=== PATIENT | male | born 1955 | race American Indian/Alaskan Native ===

== ENCOUNTER 2021-02-16 08:43 | Emergency (ER) | payer SELFPAY ==
[2021-02-16] MEDS ORDERED: ASPIRIN 325 MG TAB PO ONE (09:13)
--- NOTE | 2021-02-16 09:42 | XRay Report ---
XR chest routine 2V INDICATION / CLINICAL INFORMATION: chest pain COMPARISON: None available. FINDINGS: SUPPORT DEVICES: None. HEART / MEDIASTINUM: No significant abnormality. LUNGS / PLEURA: Lungs are clear. Costophrenic sulci are sharp. No pneumothorax. ADDITIONAL FINDINGS: No significant additional findings. IMPRESSION: 1. No acute findings. Signer Name: Arvin Robbins MD Signed: 02/16/2021 9:38 AM Workstation Name: [email or web address]
--- NOTE | 2021-02-16 10:37 | Emergency Department Report ---
ED Chest Pain HPI - General Chief Complaint: Chest Pain Stated Complaint: CHEST PAIN Time Seen by Provider: 02/16/21 10:27 Source: patient Mode of arrival: Stretcher Limitations: No Limitations - History of Present Illness Initial Comments: Patient is 65 years old male with history of hypertension. No history of coronary artery disease before. Patient presented to the ER complaining of chest pain, substernal with no radiation. Patient stated that pain started around 4:00 this morning. Patient stated that he feels like he is exerting himself a lot since he worked for [employer] and he has to do extra work sometimes. Patient denied any shortness of breath. He also denied any fever or chills. MD Complaint: chest pain -: This morning Onset: during rest Pain Location: substernal Pain Radiation: none Severity scale (0 -10): 5 Quality: tightness Consistency: intermittent - Related Data Allergies Allergy/AdvReac Type Severity Reaction Status Date / Time No Known Allergies Allergy Unverified 02/16/21 08:58 Heart Score - HEART Score History: Moderately suspicious EKG: Non-specific Age: 45-65 Risk factors: 1-2 risk factors Troponin: < normal limit HEART Score: 4 - EKG Read Time Time EKG Completed: 09:04 EKG Read Time: 09:08 - Critical Actions Critical Actions: 4-6 pts:12-16.6% risk of adverse cardiac event. Should be admitted ED Review of Systems ROS: Stated complaint: CHEST PAIN Other details as noted in HPI Comment: All other systems reviewed and negative Respiratory: denies: cough Cardiovascular: chest pain Gastrointestinal: denies: abdominal pain, nausea, vomiting Musculoskeletal: denies: back pain Neurological: denies: headache ED Past Medical Hx - Past Medical History Previous Medical History?: Yes Hx Hypertension: Yes ED Physical Exam - General Limitations: No Limitations General appearance: alert, in no apparent distress - Head Head exam: Present: atraumatic, normocephalic, normal inspection - Eye Eye exam: Present: normal appearance, PERRL - ENT ENT exam: Present: normal exam, normal orophraynx, mucous membranes moist - Neck Neck exam: Present: normal inspection, full ROM. Absent: tenderness, meningismus - Respiratory Respiratory exam: Present: normal lung sounds bilaterally - Cardiovascular Cardiovascular Exam: Present: regular rate, normal rhythm, normal heart sounds - GI/Abdominal GI/Abdominal exam: Present: soft, normal bowel sounds. Absent: distended, tenderness, guarding, rebound, rigid, organomegaly, mass, bruit, pulsatile mass, hernia - Extremities Exam Extremities exam: Present: normal inspection, full ROM, normal capillary refill. Absent: tenderness, pedal edema, joint swelling, calf tenderness - Back Exam Back exam: Present: normal inspection, full ROM. Absent: CVA tenderness (R), CVA tenderness (L) - Neurological Exam Neurological exam: Present: alert, oriented X3, CN II-XII intact - Psychiatric Psychiatric exam: Present: normal mood - Skin Skin exam: Present: warm, intact, normal color ED Course Vital Signs 02/16/21 02/16/21 02/16/21 08:58 11:01 11:15 Pulse Rate 85 66 63 Respiratory 16 14 13 Rate Blood Pressure 106/66 94/76 Blood Pressure 125/88 [Right] O2 Sat by Pulse 99 96 95 Oximetry 02/16/21 02/16/21 02/16/21 11:31 12:01 12:31 Pulse Rate 73 89 78 Respiratory 17 22 19 Rate Blood Pressure 94/76 126/92 92/63 Blood Pressure [Right] O2 Sat by Pulse 97 96 97 Oximetry 02/16/21 02/16/21 14:31 14:34 Pulse Rate 60 Respiratory 19 18 Rate Blood Pressure 118/83 Blood Pressure [Right] O2 Sat by Pulse 93 98 Oximetry - Consultations Consultation #1: 02/16/21 13:14 I discussed the patient with María, nurse practitioner with Dr. Delarosa, clothing consultant on-call. She stated that she is coming down to evaluate the pat ient for further recommendation. ED Medical Decision Making - Lab Data Result diagrams: 02/16/21 09:49 02/16/21 09:49 - EKG Data -: EKG Interpreted by Ga EKG shows normal: sinus rhythm Rate: normal - EKG Data Interpretation: no acute changes - Radiology Data Radiology results: report reviewed - Medical Decision Making Patient is 65 years old male with history of hypertension. No history of coronary artery disease before. Patient presented to the ER complaining of chest pain, substernal with no radiation. Patient stated that pain started around 4:00 this morning. Patient stated that he feels like he is exerting himself a lot since he worked for [employer] and he has to do extra work sometimes. Patient denied any shortness of breath. He also denied any fever or chills. EKG showed no ST elevation. Chest x-ray is unremarkable. Labs reviewed and is unremarkable including negative troponin x2. I discussed the patient with cardiology group Dr. Corona and patient was evaluated by them in the ER and advised patient can be discharged home and to follow-up with his primary care physician in the next 2 to 3 days and to return to the ER if he develop any new symptoms. Critical care attestation.: If time is entered above; I have spent that time in minutes in the direct care of this critically ill patient, excluding procedure time. ED Disposition Clinical Impression: Acute chest pain Disposition: DC-01 TO HOME OR SELFCARE Is pt being admited?: No Condition: Stable Instructions: Chest Pain (ED), Nonspecific Chest Pain, Adult Referrals: PRIMARY CARE, [Primary Care Provider] - 3-5 Days
[2021-02-16 10:39] LABS: Basophils % (Auto) 0.2 % (0.0-1.8); Eosinophils % (Auto) 0.1 % (0.0-4.3); Hematocrit 42.6 % (35.5-45.6); Hemoglobin 14.2 gm/dl (11.8-15.2); Lymphocytes # (Auto) 0.9 K/mm3 (1.2-5.4); Lymphocytes % (Auto) 12.3 % (13.4-35.0); Mean Corpuscular HGB Conc 33 % (32-34); Mean Corpuscular Volume 83 fl (84-94); Monocytes # (Auto) 0.4 K/mm3 (0.0-0.8); Monocytes % (Auto) 4.8 % (0.0-7.3); Platelet Count 174 K/mm3 (140-440); Red Blood Count 5.12 M/mm3 (3.65-5.03)
[2021-02-16 11:06] LABS: Alanine Aminotransferase 12 units/L (7-56); Albumin 4.1 g/dL (3.9-5); Blood Urea Nitrogen 14 mg/dL (9-20); Calcium 8.7 mg/dL (8.4-10.2); Hemolysis Index 6
[2021-02-16 11:09] LABS: BUN/Creatinine Ratio 23
[2021-02-16 12:02] LABS: INR 1.06 (0.87-1.13)
[2021-02-16 12:03] LABS: Partial Thromboplastin Time 30.5 Sec. (24.2-36.6)
[2021-02-16 12:14] LABS: Bilirubin,Urine NEG (Negative); Blood,Urine NEG (Negative); Color,Urine Straw (Yellow); Protein,Urine <15 mg/dL mg/dL (Negative); Urobilinogen,Urine < 2.0 mg/dL (<2.0); WBC,Urine < 1.0 /HPF (0.0-6.0)
--- NOTE | 2021-02-16 13:44 | Cat Scan Report ---
CTA CHEST WITH CONTRAST INDICATION / CLINICAL INFORMATION: MAIN. Chest pain TECHNIQUE: Axial CT images were obtained through the chest after injection of 100 meal Omni 350 IV contrast. 3 p wolf MIP and/or 3D reconstructions were produced. All CT scans at this location are performed using C T dose reduction for ALARA by means of automated exposure control. COMPARISON: Chest radiograph 02/16/2021. FINDINGS: PULMONARY ARTERIES: No pulmonary emboli. THORACIC AORTA: No significant abnormality. HEART: No significant abnormality. CORONARY ARTERIES: Mild coronary artery calcifications. MEDIASTINUM / DAVID: Mild distention of the esophageal lumen filled with ingested material. PLEURA: No pleural effusion. No pneumothorax. LUNGS: Mild hypoventilatory changes are noted of the bilateral lung bases ADDITIONAL FINDINGS: None. UPPER ABDOMEN: No acute findings. Moderate sized hiatal hernia. Numerous calcified granuloma noted ab out the splenic parenchyma. SKELETAL STRUCTURES: No significant osseous abnormality. No aggressive osseous lesions. IMPRESSION: 1. No CT evidence for pulmonary embolism. 2. Mild distention of the esophagus filled with ingested material is a nonspecific finding. 3. Moderate sized hiatal hernia. Signer Name: Tom Siu MD Signed: 02/16/2021 1:39 PM Workstation Name: [id number]
--- NOTE | 2021-02-16 14:55 | Consultation ---
History of Present Illness Consult date: 02/16/21 Requesting physician: SAIDA PRADHAN Consult reason: chest pain History of present illness: Pt is a 65-year-old AA male with a past medical hx of HTN (well-controlled) who presented with complaints of palpitations x 1 day prior to arrival. Pt states that he recently started driving a truck for [employer] and has noticed "flurries" in his chest on 3 occasions over the past few months since starting his new job. He attributes all of these instances to "anxiety attacks." According to pt, all 3 episodes were propagated by stress and over-exertion. Each episode lasts only a few min. Relieved by rest. Pt denies chest pain, SOB, dizziness, lightheadedness, and syncope. No additional cardiac complaints. Trop neg x 2. EC G reveals SR, no acute ischemic changes. Past History Past Medical History: hypertension, other (TIA (2005)) Past Surgical History: denies: valve replacement, CABG, PTCA Social history: smoking (former (quit > 20 years ago)), alcohol abuse (a few drinks 1-2 times/week) Family history: no significant family history Medications and Allergies Allergies Allergy/AdvReac Type Severity Reaction Status Date / Time No Known Allergies Allergy Unverified 02/16/21 08:58 Review of Systems Constitutional: no fever, no chills, no sweats, no fatigue Ears, nose, mouth and throat: no nasal congestion, no sore throat Cardiovascular: palpitations, no chest pain, no orthopnea, no rapid/irregular heart beat, no edema, no syncope, no lightheadedness, no shortness of breath, no dyspnea on exertion, no paroxysmal nocturnal dyspnea, no claudication, no decre ased exercise tolerance Respiratory: no cough, no shortness of breath, no dyspnea on exertion, no wheezing Gastrointestinal: no abdominal pain, no nausea, no vomiting, no diarrhea, no constipation Genitourinary Male: no dysuria, no flank pain Musculoskeletal: no neck stiffness, no neck pain, no myalgias Integumentary: no rash, no wounds Neurological: no head injury, no paralysis, no weakness, no parathesias, no numbness, no tingling, no seizures, no syncope, no tremors, no ataxia, no vertigo, no headaches, no change in speech, no change in mentation Psychiatric: anxiety Endocrine: no cold intolerance, no heat intolerance, no polydipsia, no polyuria Hematologic/Lymphatic: no easy bruising, no easy bleeding Allergic/Immunologic: no anaphylaxis Physical Examination Last Vital Signs Temp Pulse 60 02/16/21 14:31 Resp 18 02/16/21 14:34 BP 118/83 02/16/21 14:31 Pulse Ox 98 02/16/21 14:34 General appearance: no acute distress HEENT: Positive: EOMI, Normocephaly, Mucus Membranes Moist Neck: Positive: neck supple, trachea midline. Negative: thyromegaly, JVD/HJR Cardiac: Positive: Reg Rate and Rhythm, S1/S2. Negative: Audible Murmur Lungs: Positive: clear to auscultation (bilaterally) Neuro: Positive: Grossly Intact Abdomen: Positive: Soft. Negative: Tender Skin: Negative: Rash, Wound Musculoskeletal: No Pain, Normal Range of Motion Extremities: Present: upper extr. pulses, lower extr. pulses, warm. Absent: edema Results 02/16/21 09:49 02/16/21 09:49 Cardiac Enzymes 02/16/21 Range/Units 09:49 AST 16 (5-40) units/L Coagulation 02/16/21 Range/Units 10:49 PT 13.6 (12.2-14.9) Sec. INR 1.06 (0.87-1.13) APTT 30.5 (24.2-36.6) Sec. CBC 02/16/21 Range/Units 09:49 WBC 7.6 (4.5-11.0) K/mm3 RBC 5.12 H (3.65-5.03) M/mm3 Hgb 14.2 (11.8-15.2) gm/dl Hct 42.6 (35.5-45.6) % Plt Count 174 (140-440) K/mm3 Lymph # (Auto) 0.9 L (1.2-5.4) K/mm3 [place] # (Auto) 0.4 (0.0-0.8) K/mm3 Eos # (Auto) 0.0 (0.0-0.4) K/mm3 Baso # (Auto) 0.0 (0.0-0.1) K/mm3 Comprehensive Metabolic Panel 02/16/21 Range/Units 09:49 Sodium 135 L (137-145) mmol/L Potassium 3.7 (3.6-5.0) mmol/L Chloride 97.8 L (98-107) mmol/L Carbon Dioxide 28 (22-30) mmol/L BUN 14 (9-20) mg/dL Creatinine 0.6 L (0.8-1.3) mg/dL Glucose 131 H (75-100) mg/dL Calcium 8.7 (8.4-10.2) mg/dL AST 16 (5-40) units/L ALT 12 (7-56) units/L Alkaline Phosphatase 82 (35-129) units/L Total Protein 7.2 (6.3-8.2) g/dL Albumin 4.1 (3.9-5) g/dL - Imaging and Cardiology Echo: pending Holter: pending EKG: report reviewed, image reviewed - EKG Interpretation EKG: no acute changes EKG shows: sinus rhythm EKG interpretations - Telemetry EKG Rhythm: Sinus Rhythm - EKG Sinus rhythms and dysrhythmias: sinus rhythm Repolarization changes or abnormalities: nonspecific abnormality, ST segment, and/or T wave Assessment and Plan Currently stable cardiac status. Pt may be discharged from a Cardiology perspective. Outpatient cardiac workup encouraged and discussed with pt at bedside. Recommend 1-week event monitor, stress MPI, echo. Pt verbalized understanding. He states that he lives in [place] and will be returning home this after visiting with family locally x 24 hrs. Pt is well-established with a PCP near his home and would like to establish care with a Brand Specialist via his PCP. He will get set up to undergo the aforementioned workup within 1 week of discharge. Lifestyle modifications, including avoidance of EtOH and stimulants, advised in the meantime. Pt agreed with plan. Pt seen in conjunction with Dr. Corona, who agrees with the assessment and plan of care. - Patient Problems (1) Palpitations with regular cardiac rhythm Current Visit: Yes Status: Resolved (2) HTN (hypertension) Current Visit: Yes Status: Chronic Qualifiers: Hypertension type: essential hypertension Qualified Code(s): I10 - Essential (primary) hypertension
[2021-02-16 18:50] VITALS: BP 118/64
--- NOTE | 2021-02-17 14:38 | Electrocardiograph Report ---
[facility] Test Date: 2021-02-16 Test Time: 09:04:33 Pat Name: EMILEE WEST Department: Room: Gender: M Customer Success Advocate: JORGE A : 1955 Requested By: ED DOC Order Number: [id number] Reading MD: Madhu Salazar Measurements Intervals [place] Rate: 78 P: 62 [place]: 208 QRS: -1 QRSD: 106 T: 52 QT: 373 QTc: 425 Interpretive Statements Sinus rhythm Probable left atrial enlargement Anteroseptal infarct, age indeterminate Early repolarization ST changes No previous ECG available for comparison Electronically Signed On 02-17-2021 14:38:34 EDT by Madhu Salazar
== END 2021-02-16 16:00 | disposition home or self-care (01) ==
LOC: ED 08:43
DX: R07.89 Other chest pain (principal); I10 Essential (primary) hypertension; Z98.890 Other specified postprocedural states
CPT/HCPCS: 36415; 71046; 71275; 80053; 81001; 84484; 85025; 85379; 85610; 85730; 93005; 99284; Q9967